=== PATIENT | female | born 1980 | race Caucasian/White ===

== ENCOUNTER 2020-02-12 14:52 | Emergency (ER) | payer OTHER, SELFPAY ==
[2020-02-12] VITALS (8 sets, daily range): BP systolic 120–146; BP diastolic 82–92; PULSE 54–73; RESP 12–33; TEMP 36.9; O2SAT 95–100; BMI 25.2
--- NOTE | 2020-02-12 16:08 | DI.RAD.S_ITS ---
PROCEDURE: XR CHEST 1V INDICATIONS: Chest pain TECHNIQUE: One view of the chest was acquired. COMPARISON: None. FINDINGS: Surgical changes and devices: Surgical clips are noted in right axilla. Lungs and pleura: Lungs are clear. No pleural effusions or pneumothorax. Mediastinum: Mediastinal contours appear normal. Heart size is normal. Bones and chest wall: No suspicious bony lesions. Overlying soft tissues appear unremarkable. IMPRESSION: No acute cardiopulmonary pathology. Dictated by: Christopher Florentino M.D. on 02/12/2020 at 16:31 Approved by: Christopher Florentino M.D. on 02/12/2020 at 16:32
--- NOTE | 2020-02-12 16:21 | ED.NECK ---
HPI - Neck Pain/Injury General Chief Complaint: Chest Pain Stated Complaint: CHEST THIGHTNESS JAW PAIN Time Seen by Provider: 02/12/20 16:06 Source: patient Mode of arrival: Ambulatory History of Present Illness HPI Narrative: Patient is here for right-sided neck pain that radiates into the right scapula as well as to the right side neck/jaw and right-sided chest pain. Patient states started last Tuesday. Has gotten worse. No relief with ibuprofen. Seen by walk-in clinic today and was sent here for further workup. Low heart risk factors. No primary family history of coronary disease. Patient is does smoke. Does not take blood pressure medication or cholesterol medication. No recent exertional chest pain or dyspnea. No history of blood clots in legs or lungs. No recent long travel or immobilization. No calf pain. Patient works at the [employer]. 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 Pain is reproducible with movement of the head and neck increased pain with turning to the right and with tilting head up and down. Also pain with raising hand above her head. Denies any syncope numbness tingling or weakness. Times feels nauseated. But no sweating. Related Data Home Medications Medication Instructions Recorded Confirmed kwenzwvx-brt-[id number] sulfate 4.5 mg PO DAILY each 02/12/20 02/12/20 mg iron oral powder packet Previous Rx's Medication Instructions Recorded baclofen 20 mg PO TID PRN #20 tab 02/12/20 Allergies Allergy/AdvReac Type Severity Reaction Status Date / Time Sulfa (Sulfonamide Allergy Intermediate hives Verified 02/12/20 15:09 Antibiotics) Review of Systems Review of Systems Narrative: GENERAL: Denies chills, fatigue, malaise, fever, sweats. HEENT: Denies sinus pain, ear pain, sore throat, difficulty swallowing, dizziness. RESPIRATORY: Denies dyspnea, cough, wheezing, hemoptysis, sputum. CARDIOVASCULAR: Denies chest palpitations, orthopnea, edema, complaints chest pain GASTROINTESTINAL: Denies vomiting, abdominal pain, diarrhea, constipation, melena. Has occasional nausea : Denies dysuria, frequency, incontinence, hematuria, urinary retention. MUSCULOSKELETAL: denies weakness, joint pain, or bony pain complains of right neck muscular pain SKIN: Denies rash, skin lesions, or other NEUROLOGIC: Denies weakness, headache, numbness, change in speech, confusion, seizures, incoordination. PSYCHIATRIC: No concerning psychosocial issues. ROS Unobtainable: All systems reviewed & are unremarkable except as noted in HPI and below Patient History Social History Smoking Status: Never smoker Smoking Status: Never smoker Substance Use Type: does not use Exam Narrative Exam Narrative: GENERAL: patient appears stated age. Well-nourished, well-developed patient, in no distress, not toxic HEAD: Atraumatic. Normocephalic. EYES: Pupils equal round and reactive. Extraocular motions intact. No scleral icterus. No injection or drainage. ENT: Nose without bleeding, purulent drainage. Throat without erythema, tonsillar hypertrophy or exudate. Airway patent. NECK: Trachea midline. There is reproducible tenderness and spasm of the right trapezius and right paracervical muscles. Increased pain with movement of the head and neck left and right. Increase and worse with turning head to the right. Pain with tilting head up and down as well. Increased pain with raising hand on the right side above the head. CARDIOVASCULAR: Regular rate and rhythm without murmurs, gallops, or rubs. Strong bilateral carotid pulses as well as radial pulses RESPIRATORY: Clear to auscultation. Breath sounds equal bilaterally. No wheezes, rales, or rhonchi. GASTROINTESTINAL: Abdomen soft, non-tender, nondistended. EXTREMITIES: No edema or joint tenderness. BACK: Nontender without deformity or crepitance. No flank tenderness. NEURO: AOx3. Clear speech no facial droop light touch intact to bilateral face and hands was strong equal physician representative. SKIN: No rash or erythema of visible areas Initial Vital Signs Initial Vital Signs: Vital Signs Temperature 98.4 F 02/12/20 15:07 Pulse Rate 67 02/12/20 15:07 Respiratory Rate 12 02/12/20 15:07 Blood Pressure 143/92 H 02/12/20 15:07 Pulse Oximetry 97 02/12/20 15:07 Scores HEART Score Heart Score history: Slightly Suspicious Heart Score EKG: Normal Heart Score Age: < 45 years old Heart Score risk factors: No known risk factors Heart Score troponin: < or = to normal limit Heart Score Total: 0 Course Course Course Narrative: Patient has been doing well since here. Improving with medications given. Orders Ordered: Discontinued Medications Sodium Chloride (Normal Saline 0.9%) 1,000 mls @ 150 mls/hr IV CONT ADRIANA Last Admin: 02/12/20 16:49 Dose: Not Given Documented by: LIO Sodium Chloride (Normal Saline 0.9%) 1,000 mls @ 1,000 mls/hr IV BOLUS ONE Stop: 02/12/20 17:18 Last Infusion: 02/12/20 17:56 Dose: 0 mls/hr Documented by: Admin: 02/12/20 16:35 Dose: 1,000 mls/hr Documented by: LIO Ketorolac Tromethamine (Toradol) 15 mg IV NOW ONE Stop: 02/12/20 16:20 Last Admin: 02/12/20 16:34 Dose: 15 mg Documented by: LIO Methylprednisolone (Solu-Medrol 125 Mg Vial) 80 mg IV NOW ONE Stop: 02/12/20 16:20 Last Admin: 02/12/20 16:35 Dose: 80 mg Documented by: LIO Reevaluation(s) Reevaluation #1: Patient states Toradol and Solu-Medrol has significantly improved her neck pain. Able to turn her head to the right nearly fully with very little discomfort. Tilting her head up and down as well with minimal discomfort. She desires discharge home Time: 18:01 Vital Signs Vital signs: Vital Signs - 8 hr 02/12/20 15:07 02/12/20 15:45 02/12/20 15:46 Temperature 98.4 F Pulse Rate 67 72 73 Respiratory Rate 12 21 20 Blood Pressure 143/92 H 127/87 Pulse Oximetry 97 100 100 02/12/20 16:00 02/12/20 16:30 02/12/20 16:31 Temperature Pulse Rate 63 70 62 Respiratory Rate 19 33 H 14 Blood Pressure 120/82 142/85 H Pulse Oximetry 100 100 100 02/12/20 17:00 Temperature Pulse Rate 66 Respiratory Rate 24 Blood Pressure 134/91 H Pulse Oximetry 95 MDM - Neck Pain/Injury Lab Data Result diagrams: 02/12/20 16:30 02/12/20 16:30 Labs: Lab Results 07/14/20 07/14/20 07/14/20 Range/Units 16:30 16:30 16:30 WBC 7.3 (4.5-11.0) X10^3/uL RBC 4.43 (4.0-5.2) X10^6/uL Hgb 13.3 (12.0-16.0) g/dL Hct 38.1 (36-46) % MCV 85.9 (80-100) fL MCH 30.1 (26-34) PG MCHC 35.0 (30-36) % RDW 12.8 (11.6-14.8) % Plt Count 290 (150-400) X10^3/uL Neut % (Auto) 67.4 (50-75) % Lymph % (Auto) 26.8 (25-40) % Terry % (Auto) 4.2 (3-14) % Eos % (Auto) 0.5 L (2-4) % Baso % (Auto) 1.1 (0-2) % Neut # (Auto) 4900 (5488-2884) /uL Lymph # (Auto) 2000 (5099-6973) /uL Terry # (Auto) 300 (0-900) /uL Eos # (Auto) 0 (0-450) /uL Baso # (Auto) 100 (0-100) /uL PT 11.9 (10.1-12.7) SECONDS INR 1.0 (0.9-1.3) APTT 31 (26.4-36.2) SECONDS D-Dimer < 200 (<230) ng/mL Sodium 138 (137-145) mmol/L Potassium 4.1 (3.4-5.1) mmol/L Chloride 104 (98-107) mmol/L Carbon Dioxide 28 (22-32) mmol/L BUN 12 (7-17) mg/dL Creatinine 0.75 (0.52-1.04) mg/dL Estimated GFR > 60.0 (>60) mL/min BUN/Creatinine Ratio 16.0 (6-22) Glucose 99 (70-100) mg/dL Calcium 9.8 (8.4-10.2) mg/dL Total Bilirubin 0.4 (0.2-1.3) mg/dL AST 20 (14-36) IU/L Alkaline Phosphatase 45 (38-126) U/L Total Creatine Kinase 23 L (30-135) U/L CK-MB (CK-2) TNP CK-MB (CK-2) Rel Index TNP Troponin I < 0.012 (0.01-0.034) ng/mL Total Protein 6.8 (6.3-8.2) g/dL Albumin 4.2 (3.5-5.0) g/dL Globulin 2.6 (1.7-4.1) g/dL Albumin/Globulin Ratio 1.6 (1.0-2.8) Lipase 69 (23-300) U/L Serum , Qual (Negative) 02/12/20 Range/Units 16:30 WBC (4.5-11.0) X10^3/uL RBC (4.0-5.2) X10^6/uL Hgb (12.0-16.0) g/dL Hct (36-46) % MCV (80-100) fL MCH (26-34) PG MCHC (30-36) % RDW (11.6-14.8) % Plt Count (150-400) X10^3/uL Neut % (Auto) (50-75) % Lymph % (Auto) (25-40) % Terry % (Auto) (3-14) % Eos % (Auto) (2-4) % Baso % (Auto) (0-2) % Neut # (Auto) (6023-4574) /uL Lymph # (Auto) (2237-4161) /uL Terry # (Auto) (0-900) /uL Eos # (Auto) (0-450) /uL Baso # (Auto) (0-100) /uL PT (10.1-12.7) SECONDS INR (0.9-1.3) APTT (26.4-36.2) SECONDS D-Dimer (<230) ng/mL Sodium (137-145) mmol/L Potassium (3.4-5.1) mmol/L Chloride (98-107) mmol/L Carbon Dioxide (22-32) mmol/L BUN (7-17) mg/dL Creatinine (0.52-1.04) mg/dL Estimated GFR (>60) mL/min BUN/Creatinine Ratio (6-22) Glucose (70-100) mg/dL Calcium (8.4-10.2) mg/dL Total Bilirubin (0.2-1.3) mg/dL AST (14-36) IU/L Alkaline Phosphatase (38-126) U/L Total Creatine Kinase (30-135) U/L CK-MB (CK-2) CK-MB (CK-2) Rel Index Troponin I (0.01-0.034) ng/mL Total Protein (6.3-8.2) g/dL Albumin (3.5-5.0) g/dL Globulin (1.7-4.1) g/dL Albumin/Globulin Ratio (1.0-2.8) Lipase (23-300) U/L Serum , Qual Negative (Negative) Imaging Data Chest x-ray: Radiologist's Impression: [address] [address] XRay Report Signed Patient: Bell Mcguire KMR#: [id number] : 1980Acct:[id number] Age/Sex: 39 / FDate of Service: 02/12/20 Loc: ED Accession Number: [id number] Procedure: XR chest 1V Ordering Provider: Cameron Sanabria MD PROCEDURE: XR CHEST 1V INDICATIONS: Chest pain TECHNIQUE: One view of the chest was acquired. COMPARISON: None. FINDINGS: Surgical changes and devices: Surgical clips are noted in right axilla. Lungs and pleura: Lungs are clear. No pleural effusions or pneumothorax. Mediastinum: Mediastinal contours appear normal. Heart size is normal. Bones and chest wall: No suspicious bony lesions. Overlying soft tissues appear unremarkable. IMPRESSION: No acute cardiopulmonary pathology. Dictated by: Christopher Florentino M.D. on 02/12/2020 at 16:31 Approved by: Christopher Florentino M.D. on 02/12/2020 at 16:32 ECG Data Attestation: I personally reviewed and interpreted this ECG as follows: Interpretation: EKG at 3:10 p.m., ventricular rate 64, sinus rhythm, normal EKG, no ST elevation or depression MDM Narrative Medical decision making narrative: No repeat heart enzymes at this time. Patient has a low heart score. Ongoing reproducible pain for the past 5 days. Pain is reproducible and resolved with Toradol and Solu-Medrol Discharge Plan Departure Patient Disposition: Home Clinical Impression: Neck and shoulder pain Discharge Date/Time: 02/12/20 18:07 Instructions: DI for Neck Pain Activity Restrictions/Additional Instructions: Return if worse. See family doctor within a week for recheck. Return if any questions or concerns. No driving with muscle relaxer/medication. Prescriptions: New baclofen 20 mg tablet 20 mg PO TID PRN (Reason: pain) Qty: 20 RF: 0 No Action One Daily Multi-Vit w-Mineral 4.5 mg iron powder in packet PO DAILY RF: 0 Stand Alone Forms: Work Release Note
[2020-02-12] MEDS: KETOROLAC 60 MG/2 ML VIAL 15 MG IV (16:34)
[2020-02-12] MEDS: SODIUM CHLORIDE 0.9% 1,000 ML 1000 ML IV (16:35)
[2020-02-12] MEDS: methylPREDNISolone 125 MG/2 ML VIAL 80 MG IV (16:35)
[2020-02-12 16:36] LABS: Add Manual Diff / Slide Review NO; Basophils Absolute Auto 100 /uL (0-100); Basophils Percent Auto 1.1 % (0-2); Eosinophils Absolute Auto 0 /uL (0-450); Eosinophils Percent Auto 0.5 % (2-4); Hematocrit 38.1 % (36-46); Hemoglobin 13.3 g/dL (12.0-16.0); Lymphocytes Absolute Auto 2000 /uL (1100-4500); Lymphocytes Percent Auto 26.8 % (25-40); Mean Corpuscular Hemoglobin 30.1 PG (26-34); Mean Corpuscular Volume 85.9 fL (80-100); Monocytes Absolute Auto 300 /uL (0-900); Monocytes Percent Auto 4.2 % (3-14); Neutrophils Absolute Auto 4900 /uL (1500-7000); Neutrophils Percent Auto 67.4 % (50-75); Platelet Count 290 X10^3/uL (150-400); Red Blood Cell Count 4.43 X10^6/uL (4.0-5.2); Red Cell Distribution Width 12.8 % (11.6-14.8); White Blood Cell Count 7.3 X10^3/uL (4.5-11.0)
[2020-02-12 16:44] LABS: Prothrombin Time 11.9 SECONDS (10.1-12.7)
[2020-02-12 16:46] LABS: PTT Partial Thromboplastin Tim 31 SECONDS (26.4-36.2)
[2020-02-12 16:47] LABS: D Dimer < 200 ng/mL (<230)
[2020-02-12 16:48] LABS: Albumin 4.2 g/dL (3.5-5.0); Albumin Globulin Ratio 1.6 (1.0-2.8); Alkaline Phosphatase 45 U/L (38-126); Aspartate Aminotransferase 20 IU/L (14-36); Bilirubin Total 0.4 mg/dL (0.2-1.3); Blood Urea Nitrogen 12 mg/dL (7-17); Calcium 9.8 mg/dL (8.4-10.2); Carbon Dioxide 28 mmol/L (22-32); Chloride 104 mmol/L (98-107); Creatine Kinase 23 U/L (30-135); Estimated Glomerular Filt Rate > 60.0 mL/min (>60); Globulin 2.6 g/dL (1.7-4.1); Glucose 99 mg/dL (70-100); HEMOLYSIS < 15 (0-50); Lipase 69 U/L (23-300); Potassium 4.1 mmol/L (3.4-5.1); Sodium 138 mmol/L (137-145); Total Protein 6.8 g/dL (6.3-8.2)
[2020-02-12 17:00] LABS: Troponin I < 0.012 ng/mL (0.01-0.034)
[2020-02-12 17:02] LABS: Pregnancy Test Serum,Qual Negative (Negative)
[2020-02-13 14:35] LABS: Alanine Aminotransferase 11 IU/L (<35)
== END 2020-02-12 18:07 | disposition home or self-care (01) ==
PROVIDERS: Emergency Provider Emergency Medicine
DX: M54.2 Cervicalgia (principal); M25.511 Pain in right shoulder; R07.9 Chest pain, unspecified
CPT/HCPCS: 36415; 71045; 80053; 82550; 83690; 84484; 84703; 85025; 85379; 85610; 85730; 93005; 93010; 96361; 96374; 96375; 99284; J1885; J2930

== ENCOUNTER 2022-06-28 13:20 | Emergency (ER) | payer OTHER, SELFPAY ==
[2022-06-28 13:28] VITALS: BP 142/97; PULSE 89; RESP 17; TEMP 36.6; O2SAT 99
--- NOTE | 2022-06-28 13:56 | DI.RAD.S_ITS ---
PROCEDURE: XR CHEST 2V INDICATIONS: cough, fever and SOB eval for PNA TECHNIQUE: 2 views of the chest were acquired. COMPARISON: [facility], CR, XR CHEST 1V, 02/12/2020, 16:18. FINDINGS: Surgical changes and devices: Right chest wall/axillary surgical clips. Lungs and pleura: Lungs are clear. No pleural effusions or pneumothorax. Mediastinum: Mediastinal contours are normal. Heart size is normal. Bones and chest wall: No suspicious bony abnormalities. Soft tissues appear unremarkable. IMPRESSION: No acute radiographic abnormality. Dictated by: Carlos Spence M.D. on 06/28/2022 at 14:19 Approved by: Carlos Spence M.D. on 06/28/2022 at 14:19
--- NOTE | 2022-06-28 13:57 | ED.GENADULT ---
HPI - General Adult General Chief complaint: Upper Respiratory Symptoms Stated complaint: SOB/hard to breathe t-1 Time Seen by Provider: 06/28/22 13:52 Source: patient Mode of arrival: Ambulatory History of Present Illness HPI narrative: 41-year-old female who last evening started have worsening symptoms to include cough, shortness of breath, cough, fevers and difficulty breathing. She is also having sinus congestion sore throat. No underlying lung pathology. She has been doing [id number]-[id number] medications with only minimal improvement. She actually started have symptoms several days ago just worsened last evening. Related Data Home Medications Medication Instructions Recorded Confirmed multivit with minerals-ferrous mg PO DAILY 02/12/20 02/12/20 sulfate 4.5 mg iron oral powder packet (One Daily Multivitamins with Minerals) Allergies Allergy/AdvReac Type Severity Reaction Status Date / Time Sulfa (Sulfonamide Allergy Intermediate hives Verified 06/28/22 13:31 Antibiotics) Review of Systems Constitutional Constitutional: Reports system reviewed and no additional complaints, except as documented ENT Ears, Nose, Mouth, and Throat: Reports system reviewed and no additional complaints, except as documented Respiratory Respiratory: Reports system reviewed and no additional complaints, except as documented Integumentary/Breasts Skin/Breast: Reports system reviewed and no additional complaints, except as documented Neurologic Neurologic: Reports system reviewed and no additional complaints, except as documented Allergic/Immunologic Allergic/Immunologic: Reports system reviewed and no additional complaints, except as documented Patient History Medical History Healthy adult Social History Smoking Status: Never smoker Smoking Status: Never smoker alcohol intake frequency: other Substance Use Type: does not use Exam Initial Vital Signs Initial Vital Signs: Vital Signs Temperature 98 F 06/28/22 13:28 Pulse Rate 89 06/28/22 13:28 Respiratory Rate 17 06/28/22 13:28 Blood Pressure 142/97 H 06/28/22 13:28 Pulse Oximetry 99 06/28/22 13:28 Oxygen Delivery Method 06/28/22 13:28 Const General: cooperative, healthy appearing, comfortable, well developed and No ill appearing HENMT Head: normal to inspection and normocephalic Mouth: oral mucosae normal Throat: posterior oropharynx normal Resp Effort & Inspection: normal respiratory effort Auscultation: clear to auscultation bilaterally Cardio Rate: regular rate Rhythm: regular rhythm GI Inspection: normal to inspection Skin General: no rashes or lesions noted Neuro General: patient alert, patient awake, patient oriented x3 and moves all extremities Extrem General: normal to inspection and capillary refill normal Psych Appearance: grossly normal and well kempt Course Orders Ordered: ED Orders 06/28/22 13:26 Covid-19 + FLU A/B + RSV - PCR Stat 06/28/22 13:56 CXR [XR chest 2V] Stat Vital Signs Vital signs: Vital Signs - 8 hr 06/28/22 13:28 Temperature 98 F Pulse Rate 89 Respiratory Rate 17 Blood Pressure 142/97 H Pulse Oximetry 99 Oxygen Delivery Method Room Air Medical Decision Making Lab Data Labs: Lab Results 06/28/22 Range/Units 13:26 SARS-CoV-2 (PCR) Negative (Negative) Influenza A (RT-PCR) Flu a positive H (NEGATIVE) Influenza B (RT-PCR) Flu b negative (NEGATIVE) RSV (PCR) Negative (Negative) Imaging Data Chest x-ray: Radiologist's Impression: [place] [address] XRay Report Signed Patient: Bell Mcguire MR#: [id number] : 1980 Acct:[id number] Age/Sex: 41 / F Date of Service: 06/28/22 Loc: ED Accession Number: [id number] ?? Procedure: XR chest 2V Ordering Provider: Myke Montiel D.O. PROCEDURE:? XR CHEST 2V ? INDICATIONS:? cough, fever and SOB eval for PNA ? TECHNIQUE:? 2 views of the chest were acquired.? ? COMPARISON:? [facility], CR, XR CHEST 1V, 02/12/2020, 16:18. ? FINDINGS:? ? Surgical changes and devices:? Right chest wall/axillary surgical clips. ? Lungs and pleura:? Lungs are clear.? No pleural effusions or pneumothorax.? ? Mediastinum:? Mediastinal contours are normal.? Heart size is normal.? ? Bones and chest wall:? No suspicious bony abnormalities.? Soft tissues appear unremarkable.? ? IMPRESSION:? No acute radiographic abnormality. ? ? Dictated by: Carlos Spence M.D. on 06/28/2022 at 14:19 ? ? Approved by: Carlos Sepnce M.D. on 06/28/2022 at 14:19 MDM Narrative Medical decision making narrative: No respiratory distress. Tolerating secretions. Afebrile. Is influenza A positive which does explain her presenting symptoms. Chest x-ray shows no signs of pneumonia. We did discuss symptomatic treatment at home. She was given return precautions. She expressed understanding and agreement. Discharge Plan Departure Patient Disposition: Home Clinical Impression: Influenza A Instructions: DI for Influenza -- Adult Activity Restrictions/Additional Instructions: You were positive for the flu. Recommend that you take Tylenol/ibuprofen for any fevers or body aches. Be sure to increase your fluid intake. Contact your primary doctor for follow-up. Return to the emergency department for any new symptoms. Prescriptions: No Action One Daily Multi-Vit w-Mineral 4.5 mg iron powder in packet PO DAILY Referrals: Miscellaneous,Doctor, [Primary Care Provider] -
[2022-06-28 14:14] LABS: Influenza A - CEPHEID Flu A POSITIVE (NEGATIVE); Influenza B - CEPHEID Flu B NEGATIVE (NEGATIVE); Respiratory Syncytial Virus Negative (Negative)
--- NOTE | 2022-06-28 14:16 | PC.NURSE ---
Pt reports feeling sick for past 4 week on and off due to kids coming home with it. Pt had worsening symptoms begin last .
[2022-06-28 14:18] LABS: COVID-19 CEPHEID 4-PLEX PCR Negative (Negative)
[2022-06-28 15:02] VITALS: BP 130/77; PULSE 94; RESP 14; O2SAT 99
== END 2022-06-28 15:08 | disposition home or self-care (01) ==
PROVIDERS: Emergency Provider Emergency Medicine
DX: J10.1 Influenza due to other identified influenza virus with other respiratory manifestations (principal); Z20.822 Contact with and (suspected) exposure to COVID-19
CPT/HCPCS: 0241U; 71046; 99283

== ENCOUNTER 2023-02-11 19:55 | Emergency (ER) | payer OTHER, SELFPAY ==
[2023-02-11 19:57] VITALS: BP 139/89; PULSE 66; RESP 17; TEMP 36.8; O2SAT 99; BMI 29.2
--- NOTE | 2023-02-11 20:03 | DI.RAD.S_ITS ---
PROCEDURE: XR CHEST 1V INDICATIONS: chest pain TECHNIQUE: One view of the chest was acquired. COMPARISON: [facility], CR, XR CHEST 2V, 06/28/2022, 13:56. FINDINGS: Surgical changes and devices: Surgical clips redemonstrated in the right axilla. Lungs and pleura: Lungs are clear. No pleural effusions or pneumothorax. Mediastinum: Mediastinal contours appear normal. Heart size is normal. Bones and chest wall: No suspicious bony lesions. Overlying soft tissues appear unremarkable. IMPRESSION: 1. No acute cardiopulmonary disease. Dictated by: Mor Mi M.D. on 02/11/2023 at 21:30 Approved by: Mor Mi M.D. on 02/11/2023 at 21:31
[2023-02-11 20:26] LABS: Add Manual Diff / Slide Review NO; Basophils Absolute Auto 100 /uL (0-100); Basophils Percent Auto 1.2 % (0-2); Eosinophils Absolute Auto 200 /uL (0-450); Eosinophils Percent Auto 2.4 % (2-4); Hematocrit 38.5 % (36-46); Hemoglobin 13.6 g/dL (12.0-16.0); Lymphocytes Absolute Auto 3200 /uL (1100-4500); Lymphocytes Percent Auto 38.4 % (25-40); Mean Corpuscular HGB Conc 35.4 % (30-36); Mean Corpuscular Hemoglobin 29.8 PG (26-34); Mean Corpuscular Volume 84.3 fL (80-100); Monocytes Absolute Auto 600 /uL (0-900); Monocytes Percent Auto 7.1 % (3-14); Neutrophils Absolute Auto 4300 /uL (1500-7000); Neutrophils Percent Auto 50.9 % (50-75); Platelet Count 332 X10^3/uL (150-400); Red Blood Cell Count 4.57 X10^6/uL (4.0-5.2); White Blood Cell Count 8.4 X10^3/uL (4.5-11.0)
[2023-02-11 20:42] LABS: Prothrombin Time 11.3 SECONDS (10.1-12.7)
[2023-02-11 20:44] LABS: PTT Partial Thromboplastin Tim 31 SECONDS (26-36)
[2023-02-11 20:49] LABS: Alanine Aminotransferase 17 IU/L (<35); Albumin 4.2 g/dL (3.5-5.0); Albumin Globulin Ratio 1.3 (1.0-2.8); Alkaline Phosphatase 65 U/L (38-126); Aspartate Aminotransferase 21 IU/L (14-36); BUN Creatinine Ratio 14.1 (6-22); Bilirubin Total 0.5 mg/dL (0.2-1.3); Blood Urea Nitrogen 14 mg/dL (7-17); Calcium 8.9 mg/dL (8.4-10.2); Carbon Dioxide 25 mmol/L (22-32); Chloride 105 mmol/L (98-107); Creatine Kinase 46 U/L (30-135); Estimated Glomerular Filt Rate > 60 mL/min (>60); Globulin 3.3 g/dL (1.7-4.1); Glucose 86 mg/dL (70-100); HEMOLYSIS 17 (0-50); Lipase 73 U/L (23-300); Magnesium 1.9 mg/dL (1.6-2.3); Potassium 4.4 mmol/L (3.4-5.1); Sodium 137 mmol/L (137-145); Total Protein 7.5 g/dL (6.3-8.2)
[2023-02-11 20:59] LABS: Troponin I < 0.012 ng/mL (0.01-0.034)
[2023-02-11 21:30] VITALS: BP 128/62; PULSE 64; RESP 14; O2SAT 98
--- NOTE | 2023-02-11 21:30 | PC.NURSE ---
Pt c/o epigastric pain that is reproducible and worse on palpation with corresponding back pain. Pt reports a recent increase in physical activity with lifting and carrying.
--- NOTE | 2023-02-11 22:10 | ED.CHESTPAIN ---
HPI - Chest Pain General Chief Complaint: Chest Pain Stated Complaint: Arm pain, Chest pain Time Seen by Provider: 02/11/23 21:55 Source: patient Mode of arrival: Ambulatory Limitations: no limitations History of Present Illness HPI narrative: Patient is a 42-year-old female who approximately 7-10 days ago started to have right arm discomfort and right shoulder discomfort and right upper back discomfort. This also radiates up into the back of her neck. Then 3 days ago she started to have chest discomfort and upon further evaluation is more epigastric discomfort. No shortness of breath.. She has been doing naproxen at home for the arm and back discomfort. She is never had reflux disease before. No skin rashes. She is afebrile. Pain has been intermittent. Back discomfort is worse with palpation. Abdominal discomfort some worse with palpation as well. Related Data Home Medications Medication Instructions Recorded Confirmed multivit with minerals-ferrous mg PO DAILY 02/12/20 02/12/20 sulfate 4.5 mg iron oral powder packet (One Daily Multivitamins with Minerals) Previous Rx's Medication Instructions Recorded cyclobenzaprine 10 mg tablet 10 mg PO TID PRN muscle spasm #20 02/11/23 tabs Allergies Allergy/AdvReac Type Severity Reaction Status Date / Time Sulfa (Sulfonamide Allergy Intermediate hives Verified 02/11/23 19:57 Antibiotics) Review of Systems Cardiovascular Cardiovascular: Reports system reviewed and no additional complaints, except as documented Respiratory Respiratory: Reports system reviewed and no additional complaints, except as documented Gastrointestinal Gastrointestinal: Reports system reviewed and no additional complaints, except as documented Genitourinary Genitourinary: Reports system reviewed and no additional complaints, except as documented Musculoskeletal Musculoskeletal: Reports system reviewed and no additional complaints, except as documented Neurologic Neurologic: Reports system reviewed and no additional complaints, except as documented Patient History Medical History Healthy adult Social History Smoking Status: Never smoker Smoking Status: Never smoker alcohol intake frequency: other Substance Use Type: does not use Exam Initial Vital Signs Initial Vital Signs: Vital Signs Temperature 98.3 F 02/11/23 19:57 Pulse Rate 66 02/11/23 19:57 Respiratory Rate 17 02/11/23 19:57 Blood Pressure 139/89 02/11/23 19:57 Pulse Oximetry 99 07/14/23 19:57 Oxygen Delivery Method Room Air 02/11/23 19:57 HENMT Head: normal to inspection and normocephalic Resp Effort & Inspection: normal respiratory effort Auscultation: clear to auscultation bilaterally Cardio Rate: regular rate Rhythm: regular rhythm GI Inspection: normal to inspection Palpation: soft, No firm, No guarding and tender (Epigastric region) Back/Spine/Pelvis Other: Tenderness to palpation in the right paraspinal thoracic region. Neuro General: patient alert and patient awake Extrem General: normal to inspection Course Orders Ordered: ED Orders 02/11/23 20:03 XR chest 1V Stat EKG-12 Lead Stat 02/11/23 20:08 Complete Blood Count AUTO DIFF Stat Comprehensive Metabolic Panel Stat Lipase Stat Magnesium Stat PTT Partial Thromboplastin Donn Stat Prothrombin Time INR Stat Troponin & CK Cardiac Panel Stat Discontinued Medications Aspirin (Aspirin 81 Mg Chew Tab) 324 mg PO NOW ONE Stop: 02/11/23 20:04 Last Admin: 02/11/23 22:25 Dose: Not Given Documented By: Cyclobenzaprine HCl (Cyclobenzaprine 10 Mg Prepack) 1 bottle MISC SEEINSTR ONE Stop: 02/11/23 22:11 Last Admin: 02/11/23 22:25 Dose: 1 bottle Documented By: Ketorolac Tromethamine (Ketorolac 30 Mg/Ml Vial) 30 mg IV NOW ONE Stop: 02/11/23 22:11 Last Admin: 02/11/23 22:25 Dose: 30 mg Documented By: Pantoprazole Sodium (Pantoprazole 40 Mg Vial) 40 mg IV NOW ONE Stop: 02/11/23 22:11 Last Admin: 02/11/23 22:26 Dose: 40 mg Documented By: Vital Signs Vital signs: Vital Signs - 8 hr 02/11/23 19:57 02/11/23 21:30 02/11/23 22:30 Temperature 98.3 F Pulse Rate 66 64 66 Respiratory Rate 17 14 14 Blood Pressure 139/89 128/62 129/72 Pulse Oximetry 99 98 99 Oxygen Delivery Method Room Air Room Air Room Air MDM - Chest Pain Lab Data Attestation: I reviewed the patient's lab results. 02/11/23 20:08 02/11/23 20:08 Labs: Lab Results 07/02/11/23 02/11/23 Range/Units 20:08 20:08 20:08 WBC 8.4 (4.5-11.0) X10^3/uL RBC 4.57 (4.0-5.2) X10^6/uL Hgb 13.6 (12.0-16.0) g/dL Hct 38.5 (36-46) % MCV 84.3 (80-100) fL MCH 29.8 (26-34) PG MCHC 35.4 (30-36) % RDW 13.0 (11.6-14.8) % Plt Count 332 (150-400) X10^3/uL Neut % (Auto) 50.9 (50-75) % Lymph % (Auto) 38.4 (25-40) % [place] % (Auto) 7.1 (3-14) % Eos % (Auto) 2.4 (2-4) % Baso % (Auto) 1.2 (0-2) % Neut # (Auto) 4300 (4298-2377) /uL Lymph # (Auto) 3200 (7209-3286) /uL [place] # (Auto) 600 (0-900) /uL Eos # (Auto) 200 (0-450) /uL Baso # (Auto) 100 (0-100) /uL PT 11.3 (10.1-12.7) SECONDS INR 1.0 (0.9-1.3) APTT 31 (26-36) SECONDS Sodium 137 (137-145) mmol/L Potassium 4.4 (3.4-5.1) mmol/L Chloride 105 (98-107) mmol/L Carbon Dioxide 25 (22-32) mmol/L BUN 14 (7-17) mg/dL Creatinine 0.99 (0.52-1.04) mg/dL Estimated GFR > 60 (>60) mL/min BUN/Creatinine Ratio 14.1 (6-22) Glucose 86 (70-100) mg/dL Calcium 8.9 (8.4-10.2) mg/dL Magnesium 1.9 (1.6-2.3) mg/dL Total Bilirubin 0.5 (0.2-1.3) mg/dL AST 21 (14-36) IU/L ALT 17 (<35) IU/L Alkaline Phosphatase 65 (38-126) U/L Total Creatine Kinase 46 (30-135) U/L Troponin I < 0.012 (0.01-0.034) ng/mL Total Protein 7.5 (6.3-8.2) g/dL Albumin 4.2 (3.5-5.0) g/dL Globulin 3.3 (1.7-4.1) g/dL Albumin/Globulin Ratio 1.3 (1.0-2.8) Lipase 73 (23-300) U/L Imaging Data Chest x-ray: Radiologist's Impression: PROCEDURE:? XR CHEST 1V ? INDICATIONS:? chest pain ? TECHNIQUE:? One view of the chest was acquired.? ? COMPARISON:? [facility], CR, XR CHEST 2V, 06/28/2022, 13:56. ? FINDINGS:? ? Surgical changes and devices:? Surgical clips redemonstrated in the right axilla.? ? Lungs and pleura:? Lungs are clear.? No pleural effusions or pneumothorax.? ? Mediastinum:? Mediastinal contours appear normal.? Heart size is normal.? ? Bones and chest wall:? No suspicious bony lesions.? Overlying soft tissues appear unremarkable.? ? IMPRESSION:? ? 1.? No acute cardiopulmonary disease. ECG Data Attestation: I personally reviewed and interpreted this ECG as follows: Interpretation: Sinus rhythm Normal axis Ventricular rate is 67 Normal QRS Normal QTC No ST T wave changes MDM Narrative Medical decision making narrative: I have low suspicion for ACS. Symptoms started with upper back and right arm discomfort and I suspect this is musculoskeletal most likely causing irritation of the nerves which is causing her right arm discomfort. She has been taking nonsteroidal anti-inflammatories for this. She developed was initially described as chest pain but is actually more epigastric pain 3 days ago. I suspect that this is related to GI upset secondary to the anti-inflammatory use. Her workup here in the emergency department is reassuring. Patient is safe for discharge home. Will treat symptomatically. She was given return precautions. She expressed understanding and agreement. Discharge Plan Departure Patient Disposition: Home Clinical Impression: Back pain, thoracic, Epigastric abdominal pain Instructions: DI for Abdominal Pain-Adult, DI for Thoracic Back Pain Activity Restrictions/Additional Instructions: I do recommend that you start taking a heartburn medication such as famotidine/Pepcid. You can purchase this [id number]. This a 1 time a day medicine. You can use the muscle relaxers as needed. I also recommend other conservative measures such as massage and heat and ice to your upper back. Contact your primary doctor for a follow-up. Prescriptions: New cyclobenzaprine 10 mg tablet 10 mg PO TID PRN (Reason: muscle spasm) Qty: 20 0RF No Action One Daily Multi-Vit w-Mineral 4.5 mg iron powder in packet PO DAILY Referrals: Miscellaneous,Doctor, MD [Primary Care Provider] - Stand Alone Forms: Patient Portal/API
[2023-02-11] MEDS: CYCLOBENZAPRINE 10 MG PREPACK 1 BOTTLE MISC (22:25)
[2023-02-11] MEDS: KETOROLAC 30 MG/ML VIAL IV (22:25)
[2023-02-11] MEDS: PANTOPRAZOLE 40 MG VIAL IV (22:26)
[2023-02-11 22:30] VITALS: BP 129/72; PULSE 66; RESP 14; O2SAT 99
== END 2023-02-11 22:35 | disposition home or self-care (01) ==
PROVIDERS: Emergency Provider Emergency Medicine
DX: R10.13 Epigastric pain (principal); M54.6 Pain in thoracic spine; R07.9 Chest pain, unspecified
CPT/HCPCS: 36415; 71045; 80053; 82550; 83690; 83735; 84484; 85025; 85610; 85730; 93005; 96374; 96375; 99284; C9113; J1885